=== PATIENT | female | born 1990 | race Caucasian/White ===

== ENCOUNTER 2019-12-22 10:00 | Outpatient (REF) | payer BC, SELFPAY ==
[2019-12-26 16:50] LABS: COVID-19 RT-PCR Result Not Detected
== END 2019-12-22 10:20 ==
LOC: NCHCN 10:00
PROVIDERS: PCP Internal Medicine; Visit Provider Internal Medicine
DX: Z11.59 Encounter for screening for other viral diseases (principal)
CPT/HCPCS: U0003

== ENCOUNTER 2020-01-13 12:03 | Outpatient (REF) | payer BC, SELFPAY ==
[2020-01-17 04:48] LABS: SARS-CoV-2 RNA Undetected (Undetected); SARS-CoV-2 Specimen Source Nasal
== END 2020-01-13 12:23 ==
LOC: NCHCN 12:03
PROVIDERS: PCP Internal Medicine; Visit Provider Internal Medicine
DX: Z20.828 Contact with and (suspected) exposure to other viral communicable diseases (principal)
CPT/HCPCS: U0003

== ENCOUNTER 2020-02-09 15:27 | Outpatient (REF) | payer BC, SELFPAY ==
[2020-02-13 17:07] LABS: COVID-19 RT-PCR Result NEGATIVE (Negative)
== END 2020-02-09 15:47 ==
LOC: NCHCN 15:27
PROVIDERS: PCP Internal Medicine; Visit Provider Internal Medicine
DX: Z20.828 Contact with and (suspected) exposure to other viral communicable diseases (principal)
CPT/HCPCS: U0003

== ENCOUNTER 2020-09-25 11:48 | Outpatient (REF) | payer BC, SELFPAY ==
[2020-09-27 11:04] LABS: COVID-19 RT-PCR UVMMC Result Negative (Negative)
== END 2020-09-25 11:49 | disposition home or self-care (01) ==
LOC: NCHCN 11:48
PROVIDERS: PCP Internal Medicine; Visit Provider Physician Assistant
DX: Z20.822 Contact with and (suspected) exposure to COVID-19 (principal)
CPT/HCPCS: U0003